=== PATIENT | female | born 1935 | race Caucasian/White ===

== ENCOUNTER → 2016-12-21 | Outpatient (CLI) | payer MEDICARE, BC ==
[~2016-12-21] MED LIST: ALBU1.252 INH; ALPR-240 PO; ASPI-1085 PO; BISA10SU61 RECTALLY; CALC-946 PO; DONE10TA30 PO; FEXO-118 PO; FLUT250D2 ORAL INH; MELO-267 PO; METO-279 PO; MIRT45TA PO; OMEP40CA52 PO; QUET25TA PO; RANI150T7 PO; SERT100T12 PO
[2016-12-21 13:20] LABS: MAGNESIUM 2.3 MG/DL (1.6-2.3)
[2016-12-21 15:27] LABS: THYROID STIM HORMONE-TSH 3.61 MIU/L (0.47-4.68)
--- NOTE | 2016-12-21 20:00 | ECHOF ---
DATE OF PROCEDURE December 21, 2016 This is a two-dimensional echo with spectral Doppler, color-flow and M-mode. It was obtained in a patient with mitral valve regurgitation and pulmonary hypertension. Left atrial dimension is normal. Left ventricular end-diastolic dimension is normal. Left ventricular wall thickness is normal. LV systolic function is normal with ejection fraction of 63%. Right atrium is normal. Right ventricle is normal. Aortic root dimension is normal. Mitral annulus is calcified. Mitral valve leaflets are normal with mild mitral regurgitation. Aortic valve shows fibrocalcific changes with no stenosis or insufficiency. Tricuspid valve shows moderate tricuspid regurgitation with [id number] pulmonary hypertension with estimated pulmonary artery systolic pressure of 43. Pulmonary valve shows mild pulmonary insufficiency. There is no pericardial effusion. IMPRESSION 1. Normal LV systolic function with ejection fraction of about 63%. 2. Mitral annulus calcification with mild mitral regurgitation. 3. Aortic sclerosis. 4. Moderate tricuspid regurgitation with [id number] pulmonary hypertension with estimated pulmonary artery systolic pressure of 43. 5. Mild pulmonary insufficiency. MTDD
== END ==
LOC: IMA 12:15
PROVIDERS: ATTEND Internal Medicine Cardiovascular Disease
DX: I08.3 Combined rheumatic disorders of mitral, aortic and tricuspid valves (principal); I10 Essential (primary) hypertension; I25.10 Atherosclerotic heart disease of native coronary artery without angina pectoris; I27.2 Other secondary pulmonary hypertension; I49.3 Ventricular premature depolarization
CPT/HCPCS: 36415; 83735; 84443; 93306

== ENCOUNTER → 2016-12-26 | Outpatient (CLI) | payer MEDICARE, BC ==
[~2016-12-26] MED LIST changes: +REGADENOSON 0.4mg/5ml INJECTION IV ONE; +SALINE FLUSH 10ml SYRINGE ONE
--- NOTE | 2016-12-28 11:28 | ADENOSINEF ---
DATE OF PROCEDURE December 26, 2016 PROCEDURE 1. Lexiscan Myoview. INDICATION Coronary artery disease. IMPRESSION 1. Baseline EKG shows sinus rhythm with frequent PVCs. 2. She tolerated Lexiscan without difficulty. 3. Hemodynamic response to Lexiscan was appropriate. 4. There were no ischemic EKG changes. 5. There were no new arrhythmias. 6. 12.7 mCi of Myoview was given for rest images and 33.8 mCi for stress images. 7. Nuclear perfusion images revealed normal coronary perfusion with no scar or ischemia. 8. Quantitative ejection fraction is measured at 66%. MTDD
== END ==
LOC: IMA 11:38
PROVIDERS: ATTEND Internal Medicine Cardiovascular Disease
DX: I25.10 Atherosclerotic heart disease of native coronary artery without angina pectoris (principal); I49.3 Ventricular premature depolarization
CPT/HCPCS: 78452; 93017; A9502; J2785

== ENCOUNTER 2017-01-03 08:34 | Observation (INO) | payer MEDICARE, BC ==
[~2017-01-03] VITALS: Ht 157.5 cm; Wt 77.5 kg
[~2017-01-03 08:34] MED LIST changes: -REGADENOSON 0.4mg/5ml INJECTION IV ONE; -SALINE FLUSH 10ml SYRINGE ONE
--- NOTE | 2017-01-03 08:35 | NUR ---
ADMIT AMBULATORY TO ROOM 132 WITH DAUGHTER. PATIENT AND DAUGHTER ORIENTED TO SURROUNDINGS.
[2017-01-03 08:43] VITALS: Ht 157.5 cm; Wt 77.5 kg
[2017-01-03 08:45] VITALS: PULSE 64
[2017-01-03 08:48] VITALS: BP 162/67; PULSE 64; RESP 18; TEMP 97.2; O2SAT 95
[2017-01-03] MEDS ORDERED: METO-277 PO (08:58)
[2017-01-03 09:36] LABS: BASOPHILS # (AUTO) 0.1 T/MM3 (0-0.2); BASOPHILS % (AUTO) 0.5 % (0-2); EOSINOPHILS # (AUTO) 0.9 T/MM3 (0-0.5); EOSINOPHILS % (AUTO) 7.3 % (0-4); HCT - HEMATOCRIT 38.8 % (36-46); HGB - HEMOGLOBIN 12.1 GM/DL (12-16); IMMATURE GRANULOCYTE # (AUTO) 0.03 T/MM3 (0.00-0.03); IMMATURE GRANULOCYTE % (AUTO) 0.2 % (0.0-0.5); LYMPHOCYTES # (AUTO) 3.5 T/MM3 (1-4.8); LYMPHOCYTES % (AUTO) 27.1 % (23-45); MEAN CORPUSCULAR HGB CONC(MCHC 31.2 GM/DL (31-37); MEAN CORPUSCULAR VOLUME 89.8 UM3 (80-100); MEAN PLATELET VOLUME 10.5 UM3 (9.4-12.4); MONOCYTES # (AUTO) 1.2 T/MM3 (0-0.8); MONOCYTES % (AUTO) 9.2 % (0-9.0); NEUTROPHILS #(AUTO)-ABSOLUTE 7.2 T/MM3 (1.8-7.7); NEUTROPHILS % (AUTO) 55.7 % (33-66); RED BLOOD COUNT 4.32 M/MM3 (4.00-5.20); WBC - WHITE BLOOD COUNT 12.9 T/MM3 (4.5-11.0)
[2017-01-03 09:45] LABS: ALBUMIN 3.7 G/DL (3.5-5.0); ALBUMIN/GLOBULIN RATIO 1.2 RATIO (1.1-2.2); ALKALINE PHOSPHATASE 75 U/L (38-126); ALT (SGPT) 22 U/L (9-52); ANION GAP 14 MEQ/L (5-15); AST (SGOT) 25 U/L (14-36); BUN/CREATININE RATIO 25 RATIO (6-26); CALCIUM 9.1 MG/DL (8.4-10.2); CHLORIDE 108 MEQ/L (98-107); CO2 - CARBON DIOXIDE 22 MEQ/L (22-30); CREATININE 1.3 MG/DL (0.7-1.2); GLOMERULAR FILTRATION RATE 40; GLUCOSE 111 MG/DL (65-110); POTASSIUM 4.2 MEQ/L (3.6-5); SODIUM 144 MEQ/L (134-144); TOTAL PROTEIN 6.9 G/DL (6.3-8.2)
--- NOTE | 2017-01-03 10:10 | HPPDOC ---
DARION RICE CONTENT CHECKER 01/03/17 0953: HPI - Adult Date DATE: 01/03/17 TIME: 09:44 General Date of Admission Date of Admission: Jan 03, 2017 at 08:34 Chief Complaint: PVCs History of Present Illness Liza is a 81 year old female who is well known to Dr. Hoang with a history of CAD, nonrheumatic mitral valve insufficiency, HTN and frequent PVCs who is being admitted for antiarrhythmic therapy on Flecainide. Past Medical History Past Medical History Metabolic: hypercholesterolemia, hypertension ENMT: allergies Respiratory: COPD, asthma GI: GERD, IBS, constipation Female: UTI, kidney stones Neurological: headaches Integumentary: other Psychological: anxiety, bipolar, dementia, depression Surgical History General: EGD, appendix, colonoscopy, gallbladder, tonsils Cardiac: cardiac cath Reproductive/: D&C, other Current Medications Home Meds Active Scripts Flecainide Acetate (Flecainide Acetate) 50 Mg Tablet, 50 MG PO Q12HR for 30 Days , #60 TAB 11 Refills Prov:DARION RICE CONTENT CHECKER 01/04/17 Reported Medications Metoprolol Succinate (Metoprolol Succinate) 50 Mg Tab.er.24h, 50 MG PO DAILY, TAB 01/03/17 Donepezil HCl (Donepezil HCl) 10 Mg Tablet, 10 MG PO DAILY 11/07/16 Meloxicam (Meloxicam) 15 Mg Tablet, 15 MG PO DAILY 09/29/16 Fluticasone Propionate (Flovent Diskus) 250 Mcg Blst.w.dev, 250 PUFF ORAL INH BID 09/29/16 Cholecalciferol (Vitamin D3) (Vitamin D3) 5,000 Unit Tablet, 5000 UNIT PO DAILY 01/04/16 Ranitidine HCl (Ranitidine HCl) 150 Mg Tablet, 150 MG PO HS 01/04/16 Omeprazole (Omeprazole) 40 Mg Capsule.dr, 40 MG PO ACB 01/04/16 Sertraline (Sertraline) 100 Mg Tablet, 150 MG PO DAILY 01/04/16 Quetiapine Fumarate (Seroquel) 25 Mg Tablet, 75 MG PO HS 12/01/14 Albuterol Sulfate (Albuterol Sulfate) 1.25 Mg/3 Ml Vial.neb, 1 VIAL INH PRN 06/20/14 Mirtazapine (Remeron) 45 Mg Tablet, 45 MG PO HS 05/28/10 Alprazolam (Alprazolam) 0.25 Mg Tablet, 0.25 MG PO BID Y for ANXIETY 05/28/10 Allergies: Coded Allergies: Sulfa (Sulfonamide Antibiotics) (Verified Allergy, Unknown, SWOLLEN TONGUE , 01/03/17) Family History FOUND: CAD, MD, asthma, cancer, diabetes, hypertension (father) Vaccines 2016 UNSURE Social History Smoking Status: Never smoker Substance Use Type: does not use Alcohol Intake: none Current Occupational Status: retired Advance Directives: No DPOA for Healthcare Only Review of Systems Constitutional: REPORTS: fatigue, weakness, DENIES: chills, dizziness, fever Eyes Vision: DENIES: double vision ENMT Balance: DENIES: vertigo Sinuses: NOT FOUND: rhinorrhea Mouth/Throat: DENIES: sore throat Cardiovascular DENIES: chest pain, dyspnea on exertion, murmur, orthopnea, paroxysmal nocturnal dysp Rhythm/Rate: irregular beat, DENIES: palpitations, tachycardia Vascular: DENIES: pedal edema Pulmonary Respiratory: DENIES: cough, sputum GI Upper Abdomen: DENIES: nausea, vomiting Lower Abdomen: DENIES: diarrhea General: DENIES: dysuria Musculoskeletal General: weakness Neurological General: weakness, DENIES: headache, numbness, seizures, syncope All Other Systems All Other Systems: Reviewed (remainder of 10-point ROS Neg.) Physical Exam General General Nourishment: well nourished, well developed, apparent age Vital Signs Vital Signs Date Time Temp Pulse Resp B/P Pulse Ox O2 Delivery O2 Flow Rate FiO2 01/03/17 08:48 97.2 64 18 162/67 95 Room Air Height (Feet): 5 Height (Inches): 2.00 Telemetry Rhythm: Sinus Rhythm Telemetry Ectopy: PVC ENMT Brief: FOUND: mucosa moist Neck Brief: NOT FOUND: JVD, carotid bruits Respiratory Brief: FOUND: clear all castle, equal bilaterally, NOT FOUND: rales , wheezes Cardiovascular (brief) Cardiac Brief: FOUND: regular rate, regular rhythm, NOT FOUND: murmur, pedal edema Abdomen (brief) Abdominal Brief: FOUND: BS normo active x4, soft, NOT FOUND: tender Integumentary (brief) Integumentary Brief: FOUND: dry, pink, warm Neurologic RN Documented GCS Eye Opening: Verbal: Motor: Total: Psychiatric (brief) FOUND: alert, oriented Laboratory Laboratory Tests Test 01/03/17 09:20 White Blood Count 12.9T/MM3 Red Blood Count 4.32M/MM3 Hemoglobin 12.1GM/DL Hematocrit 38.8% Mean Corpuscular Volume 89.8UM3 Mean Corpuscular Hemoglobin 28.0UUG Mean Corpuscular Hemoglobin Concent 31.2GM/DL RDW Standard Deviation 54.6FL Platelet Count 214T/MM3 Mean Platelet Volume 10.5UM3 Immature Granulocyte % (Auto) 0.2% Neutrophils (%) (Auto) 55.7% Lymphocytes (%) (Auto) 27.1% Monocytes (%) (Auto) 9.2% Eosinophils (%) (Auto) 7.3% Basophils (%) (Auto) 0.5% Absolute Immature Granulocyte (auto 0.03T/MM3 Absolute Neutrophils (auto) 7.2T/MM3 Absolute Lymphocytes (auto) 3.5T/MM3 Absolute Monocytes (auto) 1.2T/MM3 Absolute Eosinophils (auto) 0.9T/MM3 Absolute Basophils (auto) 0.1T/MM3 Turbidity < 20 Sodium Level 144MEQ/L Potassium Level 4.2MEQ/L Chloride Level 108MEQ/L Carbon Dioxide Level 22MEQ/L Anion Gap 14MEQ/L Blood Urea Nitrogen 32.0MG/DL Creatinine 1.3MG/DL Glomerular Filtration Rate Calc 40 BUN/Creatinine Ratio 25RATIO Glucose Level 111MG/DL Calculated Osmolality 285MOSM/KG Calcium Level 9.1MG/DL Magnesium Level 2.0MG/DL Total Bilirubin 0.50MG/DL Icterus Index < 2 Aspartate Amino Transf (AST/SGOT) 25U/L Alanine Aminotransferase (ALT/SGPT) 22U/L Alkaline Phosphatase 75U/L Total Protein 6.9G/DL Albumin 3.7G/DL Globulin 3.2G/DL Albumin/Globulin Ratio 1.2RATIO Chemistry Specimen Hemolysis < 15 Laboratory Tests Test 01/03/17 09:20 White Blood Count 12.9T/MM3 Red Blood Count 4.32M/MM3 Hemoglobin 12.1GM/DL Hematocrit 38.8% Mean Corpuscular Volume 89.8UM3 Mean Corpuscular Hemoglobin 28.0UUG Mean Corpuscular Hemoglobin Concent 31.2GM/DL RDW Standard Deviation 54.6FL Platelet Count 214T/MM3 Mean Platelet Volume 10.5UM3 Immature Granulocyte % (Auto) 0.2% Neutrophils (%) (Auto) 55.7% Lymphocytes (%) (Auto) 27.1% Monocytes (%) (Auto) 9.2% Eosinophils (%) (Auto) 7.3% Basophils (%) (Auto) 0.5% Absolute Immature Granulocyte (auto 0.03T/MM3 Absolute Neutrophils (auto) 7.2T/MM3 Absolute Lymphocytes (auto) 3.5T/MM3 Absolute Monocytes (auto) 1.2T/MM3 Absolute Eosinophils (auto) 0.9T/MM3 Absolute Basophils (auto) 0.1T/MM3 EKG SR with occasional PVCs Assessment & Plan Problems: (1) Ventricular premature depolarization Status: Chronic Assessment & Plan: Start Flecainide 50mg BID. Monitor telemetry and repeat EKG in the morning (2) Atherosclerotic heart disease of [place] coronary artery without angina pectoris Status: Chronic Qualifiers: [place] vs. transplanted heart: [place] heart Qualified Codes: I25.10 - Atherosclerotic heart disease of [place] coronary artery without angina pectoris Assessment & Plan: continue current therapy, routine monitoring (3) Nonrheumatic mitral valve insufficiency Status: Chronic Assessment & Plan: continue current therapy, routine monitoring (4) Essential (primary) hypertension Status: Chronic Assessment & Plan: well controlled on current therapy. continue current therapy , routine monitoring Plan/Intensity of Service Start Flecainide 50mg BID. Monitor telemetry and repeat EKG in the morning. Code Status Full Code Hospital Course Summary Disclaimer The hospital course summary below is not to be considered part of the above Progress Note. MATHIEU HOANG MD 01/06/17 5537: Past Medical History Current Medications Home Meds Active Scripts Flecainide Acetate (Flecainide Acetate) 50 Mg Tablet, 50 MG PO Q12HR for 30 Days , #60 TAB 11 Refills Prov:DARION RICE CONTENT CHECKER 01/04/17 Reported Medications Metoprolol Succinate (Metoprolol Succinate) 50 Mg Tab.er.24h, 50 MG PO DAILY, TAB 01/03/17 Donepezil HCl (Donepezil HCl) 10 Mg Tablet, 10 MG PO DAILY 11/07/16 Meloxicam (Meloxicam) 15 Mg Tablet, 15 MG PO DAILY 09/29/16 Fluticasone Propionate (Flovent Diskus) 250 Mcg Blst.w.dev, 250 PUFF ORAL INH BID 09/29/16 Cholecalciferol (Vitamin D3) (Vitamin D3) 5,000 Unit Tablet, 5000 UNIT PO DAILY 01/04/16 Ranitidine HCl (Ranitidine HCl) 150 Mg Tablet, 150 MG PO HS 01/04/16 Omeprazole (Omeprazole) 40 Mg Capsule.dr, 40 MG PO ACB 01/04/16 Sertraline (Sertraline) 100 Mg Tablet, 150 MG PO DAILY 01/04/16 Quetiapine Fumarate (Seroquel) 25 Mg Tablet, 75 MG PO HS 12/01/14 Albuterol Sulfate (Albuterol Sulfate) 1.25 Mg/3 Ml Vial.neb, 1 VIAL INH PRN 06/20/14 Mirtazapine (Remeron) 45 Mg Tablet, 45 MG PO HS 05/28/10 Alprazolam (Alprazolam) 0.25 Mg Tablet, 0.25 MG PO BID Y for ANXIETY 05/28/10 Allergies: Coded Allergies: Sulfa (Sulfonamide Antibiotics) (Verified Allergy, Unknown, SWOLLEN TONGUE , 01/03/17) Assessment & Plan Plan/Intensity of Service After examining the patient I agree with the above assessment. I am involved in the formulation of the patient's plan of care. DARION RICE APRN Jan 03, 2017 09:53 MATHIEU HOANG MD Jan 06, 2017 13:37
[2017-01-03 10:16] LABS: THYROID STIM HORMONE-TSH 3.81 MIU/L (0.47-4.68)
[2017-01-03] MEDS: FLECAINIDE 50 MG TABLET PO SCH ×2 (10:17→21:21)
--- NOTE | 2017-01-03 11:18 | NUR ---
CM CM IN TO VISIT PATIENT, SHE IS A&O. DAUGHTER IS AT THE BEDSIDE. PATIENT PLANS TO DISCHARGE HOME, DENIES ANY DISCHARGE NEEDS. CM CONTACT INFORMATION PROVIDED. JUDI DEL ANGEL. Addendum: 01/03/17 at 1119 by ANNIKA ALEX RN Amended: Links added.
[2017-01-03 11:42] VITALS: BP 126/65; PULSE 68; RESP 20; TEMP 96.3; O2SAT 97
[2017-01-03 16:08] VITALS: BP 140/67; PULSE 67; RESP 18; TEMP 96.3
[2017-01-03] MEDS ORDERED: ALPRAZOLAM 0.25 MG TABLET PO PRN (18:30)
[2017-01-03 20:00] VITALS: BP 141/69; PULSE 79; RESP 16; TEMP 96.7; O2SAT 92
--- NOTE | 2017-01-03 20:00 | NUR ---
STATUS PT A/O X3 BUT FORGETFUL. HX OF ALZHEIMERS. PT ON RA, DENIES SOA. DENIES PAIN OR NAUSEA. TOLERATING CARDIAC DIET WELL. TELE READING SINUS RHYTHM. PT DENIES CHEST PAIN. NO COMPLAINTS OF DIZZINESS. ADEQUATE OUTPUT. PT RESTING IN BED WITH ALARM. CALL LIGHT WITHIN REACH. FREQUENT ROUNDING. WILL CONTINUE TO MONITOR.
--- NOTE | 2017-01-03 20:55 | NUR ---
meds granddaughter in room, refuses routine evening meds for pt. from our pharmacy. Granddaughter will give home routine meds to pt. this evening. We will send home meds to pharmacy to review and approve for a.m. doses.
--- NOTE | 2017-01-03 21:00 | NUR ---
activity assisted to BR, denies dizziness as up. Denies pain or dyspnea. Reminded to call for assist as up. Pt. asks again "how do I call?". Reminded again how to use the call button
[2017-01-03] MEDS ORDERED: MIRTAZAPINE 45 MG TABLET PO SCH (22:00)
[2017-01-03] MEDS ORDERED: QUETIAPINE 25 MG TABLET PO SCH (22:00)
[2017-01-03] MEDS ORDERED: RANITIDINE 150 MG PO SCH (22:00)
[2017-01-04 00:11] VITALS: BP 151/72; PULSE 67; RESP 16; TEMP 96; O2SAT 95
--- NOTE | 2017-01-04 05:36 | NUR ---
rest sleeps off and on tonoc, resp. unlabored. Assisted to BR several times, denies pain. Tele SR w/ frequent PVC
[2017-01-04] MEDS ORDERED: OMEPRAZOLE 20 MG CAPSULE PO SCH (06:30)
[2017-01-04 06:57] LABS: ANION GAP 14 MEQ/L (5-15); BUN/CREATININE RATIO 27 RATIO (6-26); CALCIUM 9.2 MG/DL (8.4-10.2); CHLORIDE 108 MEQ/L (98-107); CO2 - CARBON DIOXIDE 24 MEQ/L (22-30); CREATININE 1.1 MG/DL (0.7-1.2); GLOMERULAR FILTRATION RATE 48; GLUCOSE 94 MG/DL (65-110); MAGNESIUM 1.9 MG/DL (1.6-2.3); POTASSIUM 4.2 MEQ/L (3.6-5); SODIUM 146 MEQ/L (134-144)
[2017-01-04 08:26] VITALS: BP 144/69; PULSE 70; RESP 16; TEMP 96.5; O2SAT 94
[2017-01-04] MEDS ORDERED: MELOXICAM 15 MG TABLET PO SCH (09:00)
[2017-01-04] MEDS ORDERED: --POM--SERTRALINE 100 MG TABLET PO SCH (09:00)
[2017-01-04] MEDS ORDERED: DONEPEZIL 10 MG PO SCH (09:00)
[2017-01-04] MEDS ORDERED: SERTRALINE 50 MG TABLET PO SCH (09:00)
[2017-01-04] MEDS ORDERED: METOPROLOL XL 50 MG TABLET PO SCH (09:00)
[2017-01-04] MEDS ORDERED: METOPROLOL 100 MG PO SCH (09:00)
[2017-01-04] MEDS: FLECAINIDE 50 MG TABLET PO SCH (09:11)
[2017-01-04] MEDS ORDERED: FLEC50TA2 PO (12:06)
[2017-01-04 13:22] VITALS: BP 146/71; PULSE 71; RESP 20; TEMP 96.5; O2SAT 94
--- NOTE | 2017-01-04 13:25 | NUR ---
Discharge Patient discharge orders received. Instructions reviewed with patient and daughter. Instructions for new medication of flecanide reviewed. VSS. Heart rhythn normal sinus with occasional PVC's. Script called into pharmacy per [employer]. Escorted to car by wheelchair and Henna Villarreal cna
--- NOTE | 2017-01-04 14:00 | NUR ---
CM CM IN TO VISIT WITH PT. SHE IS ALERT AND ORIENTED. HER DAUGHTER IS PRESENT. PT PLANS TO DC HOME. SHE DENIES DC NEEDS. SHE IS GIVEN UPDATED CM CONTACT INFORMATION. Addendum: 01/04/17 at 1550 by STUART GARG RN Amended: Links added.
--- NOTE | 2017-01-05 11:21 | NUR ---
ATTEMPTED POST HOSPITAL FOLLOW UP PHONE CALL #1, NO ANSWER, LEFT VOICE MESSAGE TO RETURN CALL TO CM.
== END 2017-01-04 13:25 | disposition home or self-care (01) ==
LOC: SRG 08:34
PROVIDERS: ADMIT Internal Medicine Cardiovascular Disease; ATTEND Internal Medicine Cardiovascular Disease
DX: I49.3 Ventricular premature depolarization (principal); I25.10 Atherosclerotic heart disease of native coronary artery without angina pectoris; I34.0 Nonrheumatic mitral (valve) insufficiency; I10 Essential (primary) hypertension; Z79.899 Other long term (current) drug therapy; E78.00 Pure hypercholesterolemia, unspecified; J44.9 Chronic obstructive pulmonary disease, unspecified; J45.909 Unspecified asthma, uncomplicated; K21.9 Gastro-esophageal reflux disease without esophagitis; K58.1 Irritable bowel syndrome with constipation; Z87.442 Personal history of urinary calculi; Z87.440 Personal history of urinary (tract) infections; F41.0 Panic disorder [episodic paroxysmal anxiety]; F31.9 Bipolar disorder, unspecified; F03.90 Unspecified dementia, unspecified severity, without behavioral disturbance, psychotic disturbance, mood disturbance, and anxiety; Z98.61 Coronary angioplasty status; Z79.82 Long term (current) use of aspirin; Z79.1 Long term (current) use of non-steroidal anti-inflammatories (NSAID); Z82.49 Family history of ischemic heart disease and other diseases of the circulatory system
CPT/HCPCS: 36415; 80048; 80053; 83735; 84439; 84443; 85025; 93005; A9270; G0378; 99218

== ENCOUNTER 2017-11-01 15:18 | Observation (INO) ==
--- OUTSIDE RECORDS SUMMARY | 2017-11-01 15:37 | External Medical Summary | Continuity of Care Document ---
:1935 Author Organization [facility] Allergies Active Description Code Type Severity Reaction Onset Reported/ Identified Relationship Clinical to Patient Status Yes Sulfa 491 3 N/A N/A (Sulfonamide Antibiotics) Yes No Known 76197 3 N/A N/A 04/17/1215 Drug 0 Allergies Medications There is no data. Problems There is no data. Procedures There is no data. Results There is no data. Encounters ACCT No. Visit Discharge Status Pt. Type Provider Facility Loc./Unit Complaint Date/Time [id number] 10/04/2016 10/04/2016 [facility] Outpatient Judith, 13:40:00 23:59:59 Natalia Kwok
[2017-11-01] MEDS ORDERED: SALINE FLUSH 10ml SYRINGE IVF PRN (15:38)
--- NOTE | 2017-11-01 15:52 | Emergency Department Report ---
Fall HPI - General Chief Complaint: Fall Stated Complaint: Fall Time Seen by Provider: 11/01/17 15:33 - History of Present Illness HPI Narrative: 10-year-old female brought in by EMS status post fall. This is an unwitnessed fall. Patient has fallen 5 times in 5 days. She has "goose eggs" from other falls during the last few days. Seen today by her primary care provider for follow-up on the falls. On being brought in by EMS patient is diaphoretic and sedate having had fentanyl 100 g. Patient brought in in c-collar on backboard. - Related Data Home Medications Medication Instructions Recorded Confirmed Cholecalciferol (Vitamin D3) 5,000 unit PO DAILY 04/14/17 11/01/17 [Vitamin D3] Metoprolol Succinate 50 mg PO DAILY 04/14/17 11/01/17 Multivitamin [One Daily 1 each PO DAILY 04/14/17 11/01/17 Multivitamin] Acetaminophen 1 - 2 tab PO Q5H PRN 10/28/17 11/01/17 Albuterol/Ipratropium [Duoneb] 1 unit AEROSOL TID PRN 10/28/17 11/01/17 BuPROPion SR [Wellbutrin Sr] 200 mg PO DAILY 10/28/17 11/01/17 Donepezil [Aricept] 10 mg PO HS 10/28/17 11/01/17 Flecainide [Tambocor] 50 mg PO BID 10/28/17 11/01/17 Nystatin 1 each TOP BID 10/28/17 11/01/17 Sertraline [Zoloft] 200 mg PO DAILY 10/28/17 11/01/17 Allergies Allergy/AdvReac Type Severity Reaction Status Date / Time Sulfa (Sulfonamide Allergy Unknown SWOLLEN Verified 11/01/17 15:43 Antibiotics) TONGUE Review of Systems All systems: reviewed and negative except as stated PFSH Patient Stated Medical History Alzheimer's Disease Yes Dementia Yes Hypertension Yes Other Cardiology Yes: Pulmonary Arterial Hypertension Asthma Yes Pneumonia Yes Gastroesophageal Reflux Yes Disease Other GI Yes: IBS Hx Incontinence Yes Hx Kidney Stones Yes Hx Urinary Tract Infection Yes Osteoarthritis Yes: Left Knee Depression Yes - Social History Smoking status: Never smoker Substance use type: does not use Physical Exam - Limitations Limitations: no limitations - General General appearance: lethargic - Normal Exams: Chest/Respirations:: Clear all castle, with good airflow, and symmetry bilaterally Cardiovascular:: Regular rate and rhythm, without murmur or gallop, Pulses 2+ all extremities, capillary refill, <2 seconds all extremities Abdomen:: Bowel sounds positive, soft, non-tender, non-distended, no hepatosplenomegaly, masses or bruits noted - Head Head exam: other (right posterior occiput has palpable hematoma.) Course Vital Signs Temperature 98.5 F 11/01/17 15:18 Pulse Rate 66 11/01/17 15:18 Respiratory Rate 20 11/01/17 15:18 Blood Pressure 184/86 H 11/01/17 15:18 Pulse Oximetry 93 11/01/17 15:18 Temperature 98.5 F 11/01/17 15:18 Pulse Rate 67 11/01/17 17:15 Respiratory Rate 19 11/01/17 16:45 Blood Pressure 158/70 H 11/01/17 17:00 Pulse Oximetry 91 11/01/17 17:15 Fall - [facility] Narrative Medical decision making narrative: On arrival, patient was rolled from backboard and spine was cleared. She was laid back on to a slider board. C-collar left in place until CT head and CT cervical spine return red. Labs reviewed and CMP negative, CBC shows slightly elevated white count, UA is negative. CT cervical spine and CT brain are negative as is x-ray of pelvis and bilateral hips. This is a patient whom has had 5 falls in 5 days. She is not safe in her present circumstance due to repeated falls. I spoke with our hospitalist who was willing to put the patient in on observation status and sort out placement. - Differential Diagnosis Likely: syncope, compression fracture, concussion with loss of consciousness, concussion without loss of consciousness - Medical Records Attestation: I reviewed the patient's medical records. - Lab Data Attestation: I reviewed the patient's lab results. Result diagrams: 11/01/17 15:27 11/01/17 15:27 Lab Results 11/01/17 11/01/17 11/01/17 Range/Units 15:27 15: 17:10 WBC 12.4 H (4.5-11.0) T/MM3 RBC 4.41 (4.00-5.20) M/MM3 Hgb 14.0 (12-16) GM/DL Hct 43.6 (36-46) % MCV 98.9 (80-100) UM3 MCH 31.7 (26-34) UUG MCHC 32.1 (31-37) GM/DL RDW Std Deviation 50.3 H (36.9-50.2) FL Plt Count 231 (130-400) T/MM3 MPV 10.7 (9.4-12.4) UM3 Immature Gran % (Auto) 0.2 (0.0-0.5) % Neut % (Auto) 62.0 (33-66) % Lymph % (Auto) 25.6 (23-45) % [place] % (Auto) 8.8 (0-9.0) % Eos % (Auto) 3.1 (0-4) % Baso % (Auto) 0.3 (0-2) % Neut # (Auto) 7.7 (1.8-7.7) T/MM3 Lymph # (Auto) 3.2 (1-4.8) T/MM3 [place] # (Auto) 1.1 H (0-0.8) T/MM3 Eos # (Auto) 0.4 (0-0.5) T/MM3 Baso # (Auto) 0.0 (0-0.2) T/MM3 Abs Immat Gran (auto) 0.03 (0.00-0.03) T/MM3 Turbidity < 20 (0-20) Sodium 145 H (134-144) MEQ/L Potassium 3.9 (3.6-5) MEQ/L Chloride 106 (98-107) MEQ/L Carbon Dioxide 26 (22-30) MEQ/L Anion Gap 13 (5-15) MEQ/L BUN 19.0 H (7-17) MG/DL Creatinine 1.2 (0.7-1.2) MG/DL GFR Calculation 43 BUN/Creatinine Ratio 16 (6-26) RATIO Glucose 107 (65-110) MG/DL Calculated Osmolality 281 H (261-280) MOSM/KG Calcium 9.6 (8.4-10.2) MG/DL Total Bilirubin 0.40 (0.20-1.30) MG/DL Icterus Index < 2 (0-7) AST 34 (14-36) U/L ALT 27 (9-52) U/L Alkaline Phosphatase 82 (38-126) U/L Troponin I < 0.012 (0-0.12) ng/ml Total Protein 7.3 (6.3-8.2) G/DL Albumin 4.1 (3.5-5.0) G/DL Globulin 3.2 (2.4-3.6) G/DL Albumin/Globulin Ratio 1.3 (1.1-2.2) RATIO Plasma Lactate 1.6 (0.6-2.2) MMOL/L Specimen Hemolysis 18 (0-25) Ur Collection Type Urine, cath euceda Urine Color Yellow (YELLOW) Urine Clarity Clear Urine pH 7.0 (5.0-8.0) Ur Specific [place] 1.025 (1.015-1.025) Urine Protein Negative (NEGATIVE) Urine Glucose (UA) Negative (NEGATIVE) Urine Ketones Negative (NEGATIVE) Urine Occult Blood Negative (NEGATIVE) Urine Nitrate Negative (NEGATIVE) Urine Bilirubin Negative (NEGATIVE) Urine Urobilinogen 0.2 (NORMAL) EU/DL Ur Leukocyte Esterase Negative (NEGATIVE) Urinalysis Comment Microscopic not ind. - Radiology Data Attestation: I reviewed the patient's radiology results. Disposition Clinical Impression: Weakness, Fall, Concussion Disposition: 02 To [facility] Condition: Stable Prescriptions: No Action Multivitamin [One Daily Multivitamin] 1 each PO DAILY Metoprolol Succinate 50 mg PO DAILY BuPROPion SR [Wellbutrin Sr] 200 mg PO DAILY Acetaminophen 1 - 2 tab PO Q5H PRN PRN Reason: Pain Donepezil [Aricept] 10 mg PO HS Sertraline [Zoloft] 200 mg PO DAILY Nystatin 1 each TOP BID Cholecalciferol (Vitamin D3) [Vitamin D3] 5,000 unit PO DAILY Albuterol/Ipratropium [Duoneb] 1 unit AEROSOL TID PRN PRN Reason: Shortness Of Air Flecainide [Tambocor] 50 mg PO BID Referrals: James Arreaga MD [Family Provider] - Time of Disposition: 17:39 - Seen By: physician
--- NOTE | 2017-11-01 16:36 | CT Scan Report ---
Indication: Repeated falls PROCEDURE: CT cervical spine wo con: Encounter: Initial Comparison: October 28, 2017 Technique: Axial CT images through the cervical spine were performed without contrast. Coronal and sagittal reformatted images were also obtained. Automated Exposure Control and Iterative Reconstruction dose reducing techniques were utilized. FINDINGS: The alignment of the cervical spine is stable. Multilevel degenerative changes are present. There is no evidence of acute fracture or subluxation of the cervical spine. The atlantoaxial articulation, dens, and upper cervical spine demonstrate no subluxation. The paraspinal soft tissues and spinal canal appear unremarkable. IMPRESSION: No acute traumatic abnormality of the cervical spine. .
--- NOTE | 2017-11-01 16:38 | CT Scan Report ---
Indication: fall PROCEDURE: CT head/brain wo con: Encounter: Initial Comparison: October 28, 2017 Technique: Axial CT images through the head were performed without contrast. Iterative Reconstruction dose reducing technique was utilized. FINDINGS: Mild to moderate generalized atrophy. The ventricles are stable. There is no evidence of acute intracranial hemorrhage, midline displacement, or mass effect. There are scattered areas of low attenuation in the white matter which most likely represent changes of chronic microvascular ischemia. The CT attenuation of the brain parenchyma is otherwise normal within the cerebellum, brain stem, and cerebral hemispheres. The tympanic cavities and mastoid air cells are free of appreciable disease. There are no definite fractures of the skull base, calvarium, or visualized portion of the midface. Chronic left maxillary sinusitis. Left parietal scalp hematoma. IMPRESSION: No CT evidence of acute traumatic intracranial injury. .
--- NOTE | 2017-11-01 16:40 | XRay Report ---
Indication: fall PROCEDURE: XR chest 1V: Encounter: Initial Comparison: April 14, 2017 Findings: Stable appearance of the chest with an elevated right hemidiaphragm and prominent hiatal hernia. No pneumonia, pleural effusion or pneumothorax. Heart size and mediastinal contours are stable. Pulmonary vascularity appears normal. Impression: Stable chest without acute cardiopulmonary disease. .
--- NOTE | 2017-11-01 16:50 | XRay Report ---
Indication: fall with right hip pain PROCEDURE: XR pelvis w/ 2 view BI hip: Encounter: Initial Comparison: October 28, 2017 Findings: There is no acute fracture, dislocation or malalignment identified. Mild osteoarthritis in the hips. Degenerative change in the pubic symphysis. Impression: No acute osseous abnormality. .
[2017-11-01 18:29] VITALS: BMI 30.4
--- NOTE | 2017-11-01 18:54 | History & Physical Report ---
History of Present Illness Date: 11/01/17 Chief complaint: multiple falls HPI: Patient is an 82-year-old female who is pleasantly confused with a long- standing history of dementia. She currently resides at [facility] under the care of Dr. Arreaga. Unfortunately, over the last 5 days she has suffered 5 separate falls requiring 3 emergency room visits in the past 4 days. She has "goose eggs" and multiple bruises all over her head, arms, knees, legs, however , has not been found have any acute fractures, intracranial trauma or bleeding. She was seen in the emergency room at [facility] on 10/28 was evaluated and discharged. Then patient was seen on Monday 10/30 at via [facility] ER and was evaluated and discharged. Yesterday she fell again, however, was not transported for evaluation. Then today she fell again hitting her head, she was transported to the emergency room for acute evaluation. She was seen by Dr. Arreaga's GREEN END DEPARTMENT SUPERVISOR- Lacy this morning prior to the fall. Today during acute evaluation in the emergency room . Laboratory studies are reviewed. CT scan of the head, C-spine were obtained. Both were negative. X-ray of chest, hip and pelvis were also obtained. All found to be negative for acute processes. Given numerous falls. The hospitalist services were contacted and accepted patient for outpatient observation admission for further evaluation and treatment. Is expected that her stay will be less than 2 overnights She is seen upon arrival to medical unit. She is alert, however, pleasantly confused and looks to her daughter to answer all questions. Patient's daughter does confirm patient is a full code. Review of Systems ROS unobtainable: due to mental status Review of systems: Unable to get an accurate review of systems on examination. Given patient's dementia. When asking through review of system patient looks to her daughter for answers. She denies having any pain and is able to move all extremities equally without deficit or grimacing. Past Medical History Patient Stated Medical History Dementia Hypertension. Mitral valve insufficiency Coronary artery disease GERD Asthma IBS Depression/anxiety Osteoarthritis Chronic urinary incontinence History of renal stones Surgical History: Tonsillectomy. Appendectomy. Cholecystectomy Family History Updates: Reported. Family history is positive for breast cancer, hypertension and dementia - Social History Smoking status: Never smoker Substance use type: does not use Alcohol intake frequency: does not drink Housing: half-way ([facility]) Current occupational status: retired Current residence: [facility] Social history: Primary care provider-Dr. Arreaga Bi Consultant-Dr. Hoang Patient resides at [facility] in total half-way care Medications Home Medications Medication Instructions Recorded Confirmed Type Cholecalciferol (Vitamin D3) 5,000 unit PO DAILY 04/14/17 11/01/17 History [Vitamin D3] Metoprolol Succinate 50 mg PO DAILY 04/14/17 11/01/17 History Multivitamin [One Daily 1 each PO DAILY 04/14/17 11/01/17 History Multivitamin] Acetaminophen 1 - 2 tab PO Q5H PRN 10/28/17 11/01/17 History Albuterol/Ipratropium [Duoneb] 1 unit AEROSOL TID PRN 10/28/17 11/01/17 History BuPROPion SR [Wellbutrin Sr] 200 mg PO DAILY 10/28/17 11/01/17 History Donepezil [Aricept] 10 mg PO HS 10/28/17 11/01/17 History Flecainide [Tambocor] 50 mg PO BID 10/28/17 11/01/17 History Nystatin 1 each TOP BID 10/28/17 11/01/17 History Sertraline [Zoloft] 200 mg PO DAILY 10/28/17 11/01/17 History Allergies Allergy/AdvReac Type Severity Reaction Status Date / Time Sulfa (Sulfonamide Allergy Unknown SWOLLEN Verified 11/01/17 15:43 Antibiotics) TONGUE Exam Vital Signs: Temperature 96.3 F L 11/01/17 18:13 Pulse Rate 67 11/01/17 18:13 Respiratory Rate 18 11/01/17 18:13 Blood Pressure 156/79 H 11/01/17 18:13 Pulse Oximetry 94 11/01/17 18:13 Height/Weight/BMI: Height 1.6 m Weight 78 kg Body Mass Index 30.4 - Constitutional Present: no acute distress, well nourished, well developed - Routine HEENT Exam Eye: Present: EOMI ENT: Present: mucous membranes moist, dentition normal - Routine Neck Exam Present: supple, full ROM - Routine Respiratory Exam Present: CTA bilaterally. Absent: wheezes - Routine Cardiovascular Exam Present: RRR, S1, S2. Absent: murmur - Routine Abdominal Exam Present: soft, normoactive bowel sounds, non distended. Absent: tenderness - Routine Extremities Exam Present: no edema Comments: Multiple areas of ecchymosis to bilateral arms, for head, knees, hands - Routine Back/Spine/Pelvis Exam Back/Spine: Present: full ROM - Routine Skin Exam Present: intact, dry, warm - Routine Neurological Exam Present: alert, CN II-XII intact, altered mental status (confused, chronic dementia), moving all extremities, vision grossly intact, hearing grossly intact , normal speech. Absent: motor deficit - Routine Psychiatric Exam Present: cooperative Results - Labs CBC & Chem 7: 11/01/17 15:27 11/01/17 15:27 Assessment and Plan (1) Multiple falls Current visit: Yes Status: Acute Assessment and Plan: Impression Multiple falls- 5 falls in the past 5 days Multiple minor head injuries Hypernatremia-present on admission Dementia Mitral valve insufficiency Asthma Hypertension GERD Depression/anxiety Plan Admit patient to outpatient observation under the care of Dr. Aguilera for multiple falls with head injury We will check orthostatic vital signs twice a day as patient may be becoming orthostatic with position changes, which is attributed to her multiple falls. We could likely treat only standing blood pressures. Mild hyper nature me at present on admission with a sodium of 145. Will initiate Normal saline at 100 ML per hour for gentle hydration. Monitor patient on cardiac telemetry to evaluate for dysrhythmias Consult placed for PT and OT to evaluate patient tomorrow morning. Did discuss with patient's daughter, ANN Tena, regarding concern for multiple falls. She feels that patient may be forgetting to call for help or becoming confused and getting out of bed independently. She does indicate that changes were made to patient's bed and it was lowered closer to the ground today. SCDs to bilateral lower extremity for DVT prophylaxis Will utilize scheduled Tylenol for pain control given multiple contusions and ecchymosis At this time will review and continue home medications Will discuss further orders and plan of care with attending, Dr. Aguilera. At time of discharge medical care will return to primary care provider, Dr. Arreaga 11/01/2017-8:15 PM-I reviewed this chart, the patient history, and the GREEN END DEPARTMENT SUPERVISOR's/PA 's documented findings as above. We discussed and formulated the assessment and plan as above with the additions below.-Dr. Aguilera The patient was seen this evening accompanied by her daughter. The patient is very pleasant but has significant dementia. The patient states that she "feels better". She denies any pain. She denies any complaints. She has had multiple falls over the past 5 days at the half-way. Her daughter states she has not seemed agitated to her. The patient has had some medication changes recently with Wellbutrin increased from 150 mg daily to 200 mg daily on 10/25/2017. Also Risperdal was discontinued on 10/23/2017. The patient's daughter states that her mom has had a fall in blood pressure when she stands up. On exam the patient is alert and in no acute distress. HEENT reveals sclerae to be anicteric and pupils are equal. Extraocular movements are intact. Oropharynx is moist. Neck is supple with good range of motion. Chest is clear to auscultation. Cardiovascular reveals a regular rate and rhythm. Abdomen is soft and nontender. Extremities are free of edema. On neurologic exam she has no obvious focal deficits. Motor strength is equal in upper and lower extremities. She has no facial asymmetry. Labs reviewed and essentially normal. She does have a white count of 12.4, but her daughter states she has a chronic elevated white count and sees a ring barker operator oncologist. Sodium is 145. Troponin and lactate are normal. Impression Recent onset of frequent falls of undetermined etiology. No increased agitation or anxiety noted by the patient's daughter Reported Orthostatic hypotension-(I did review orthostatics that are listed in the patient's marker and I do not see much in the way of orthostatic blood pressure drop or increased heart rate with standing) Dementia Recent medication changes with increase in Wellbutrin and discontinuation of Risperdal. It's uncertain if this is contributing to her recent falls Asthma-stable Hypertension Mild hypernatremia Chronic elevated white count Plan Check orthostatics. Will give 1 L of fluids. Repeat labs tomorrow. Bed alarm. Up with assist only. If not orthostatic, and another cause for the patient's falls is not seen, could consider psychiatry consult for calling her psychiatrist to evaluate medications to see if the recent med changes may be contributing to her falls. The patient does see a psychiatrist at [facility] Discussed the importance of that alarm with the patient's nurse - Physician Narrative Physician: Jo-Ann Aguilera MD Narrative: Date: 11/01/17 Time: 1845 Hospital Course Summary Disclaimer: The visit summary below is not to be considered part of the above Progress Note. Hospital Course: Impression Multiple falls- 5 falls in the past 5 days Multiple minor head injuries Hypernatremia-present on admission Dementia Mitral valve insufficiency Asthma Hypertension GERD Depression/anxiety Plan Admit patient to outpatient observation under the care of Dr. Aguilera for multiple falls with head injury We will check orthostatic vital signs twice a day as patient may be becoming orthostatic with position changes, which is attributed to her multiple falls. We could likely treat only standing blood pressures. Mild hyper nature me at present on admission with a sodium of 145. Will initiate Normal saline at 100 ML per hour for gentle hydration. Monitor patient on cardiac telemetry to evaluate for dysrhythmias Consult placed for PT and OT to evaluate patient tomorrow morning. Did discuss with patient's daughter, NAN Tena, regarding concern for multiple falls. She feels that patient may be forgetting to call for help or becoming confused and getting out of bed independently. She does indicate that changes were made to patient's bed and it was lowered closer to the ground today. SCDs to bilateral lower extremity for DVT prophylaxis Will utilize scheduled Tylenol for pain control given multiple contusions and ecchymosis At this time will review and continue home medications Will discuss further orders and plan of care with attending, Dr. Aguilera. At time of discharge medical care will return to primary care provider, Dr. Arreaga
[2017-11-01] MEDS ORDERED: ALBUTEROL/IPRATROPIUM 2.5mg-0.5mg/3ml NEB AEROSOL PRN (19:03)
[2017-11-01] MEDS: NS 1,000 ML IV SCH (20:18)
[2017-11-01] MEDS ORDERED: DONEPEZIL 10 MG TABLET PO SCH (21:00)
[2017-11-01] MEDS: FLECAINIDE 50 MG TABLET PO SCH (22:35)
[2017-11-01] MEDS: ACETAMINOPHEN 500 MG TABLET PO SCH (22:36)
[2017-11-02] MEDS: ACETAMINOPHEN 500 MG TABLET PO SCH ×5 (01:47→15:06)
[2017-11-02] MEDS: NS 1,000 ML IV SCH ×2 (06:40→15:07)
[2017-11-02 08:32] VITALS: BP 154/68; PULSE 72; RESP 20; TEMP 97.4; O2SAT 95
[2017-11-02] MEDS: FLECAINIDE 50 MG TABLET PO SCH (08:42)
[2017-11-02] MEDS ORDERED: BUPROPION 100 MG PO SCH (09:00)
[2017-11-02] MEDS ORDERED: SERTRALINE 100 MG TABLET PO SCH (09:00)
[2017-11-02] MEDS ORDERED: MULTI-VITAMIN PLAIN TABLET PO SCH (09:00)
--- NOTE | 2017-11-02 14:26 | Extended Care Facility Orders ---
Admission Orders Admit to:: [facility] Allergies/Adverse Reactions: Allergies Sulfa (Sulfonamide Antibiotics) Allergy (Unknown, Verified 11/01/17 15:43) SWOLLEN TONGUE Admitting Diagnosis: Recurrent falls Admitting Physician: Marvin Marie MD Attending Physician: Marvin Marie MD Anticiapted Length of Stay: greater than 30 days Rehab Potential: fair Rehab Prognosis: fair Diet: 11/02/17 Breakfast Regular Diet [DIET] Diet Modifications: May use Facility Protocol or Standing Orders: Yes May have flu vaccine: Yes Evaluations/Treatment: PT, OT - Additional Information In Event of Arrest: Start CPR,call 911,send patient to the ER Referrals: James Arreaga MD [Family Provider] - (Please follow up in 1 week ) Additional Orders: Severe fall risk. It is recommended by primary care, Dr. Arreaga as well as the hospitalist service that patient be moved to the memory care unit
--- NOTE | 2017-11-02 14:31 | Discharge Summary ---
Discharge Information Date of admission: 11/01/17 17:31 Anticipated date of discharge: 11/02/17 Attending Physician: Marvin Marie MD Primary care physician: James Arreaga MD Consults: None - Discharge Diagnosis (1) Multiple falls Status: Acute Multiple falls- 5 falls in the past 5 days Multiple minor head injuries Hypernatremia-present on admission Dementia Mitral valve insufficiency Asthma Hypertension GERD Depression/anxiety - Procedures Procedures: None - Laboratory Labs: 11/02/17 04:40 - Microbiology None - Radiology Radiology: 11/01/17 CT head and cervical spine-both negative for acute trauma or bleeding Chest [id number] no acute cardiopulmonary abnormalities. Pelvis and bilateral hip x-ray-no acute osseous abnormality - Pathology None History of Present Illness HPI: Patient is an 82-year-old female who is pleasantly confused with a long- standing history of dementia. She currently resides at [facility] under the care of Dr. Arreaga. Unfortunately, over the last 5 days she has suffered 5 separate falls requiring 3 emergency room visits in the past 4 days. She has "goose eggs" and multiple bruises all over her head, arms, knees, legs, however , has not been found have any acute fractures, intracranial trauma or bleeding. She was seen in the emergency room at [facility] on 10/28 was evaluated and discharged. Then patient was seen on Monday 10/30 at via [facility] ER and was evaluated and discharged. Yesterday she fell again, however, was not transported for evaluation. Then today she fell again hitting her head, she was transported to the emergency room for acute evaluation. She was seen by Dr. Arreaga's DAY CARE HOME MOTHER- Lacy this morning prior to the fall. Today during acute evaluation in the emergency room . Laboratory studies are reviewed. CT scan of the head, C-spine were obtained. Both were negative. X-ray of chest, hip and pelvis were also obtained. All found to be negative for acute processes. Given numerous falls. The hospitalist services were contacted and accepted patient for outpatient observation admission for further evaluation and treatment. Is expected that her stay will be less than 2 overnights She is seen upon arrival to medical unit. She is alert, however, pleasantly confused and looks to her daughter to answer all questions. Patient's daughter does confirm patient is a full code. Objective Vital signs: Temperature 97.4 F 11/02/17 08:04 Pulse Rate 72 11/02/17 08:11 Respiratory Rate 20 11/02/17 08:04 Blood Pressure 154/68 H 11/02/17 08:11 Pulse Oximetry 95 11/02/17 08:11 Height/Weight/BMI: Height 1.6 m Weight 79.2 kg Body Mass Index 30.4 - Constitutional Present: no acute distress, well nourished, well developed - Routine HEENT Exam Eye: Present: EOMI ENT: Present: mucous membranes moist, dentition normal - Routine Respiratory Exam Present: CTA bilaterally. Absent: wheezes - Routine Cardiovascular Exam Present: RRR, S1, S2. Absent: murmur - Routine Abdominal Exam Present: soft, normoactive bowel sounds, non distended. Absent: tenderness - Routine Extremities Exam Present: full ROM - Routine Back/Spine/Pelvis Exam Back/Spine: Present: full ROM - Routine Skin Exam Present: intact, dry, warm - Routine Neurological Exam Present: alert, CN II-XII intact, altered mental status - Routine Lymphatic Exam Lymphatic: Absent: adenopathy - Routine Psychiatric Exam Present: cooperative Hospital Course This is a general summary of the patient's hospital course. For more details refer to the complete medical record. Hospital course: Impression Multiple falls- 5 falls in the past 5 days Multiple minor head injuries Hypernatremia-present on admission Dementia Mitral valve insufficiency Asthma Hypertension GERD Depression/anxiety Plan- 11/01 Admit patient to outpatient observation under the care of Dr. Aguilera for multiple falls with head injury We will check orthostatic vital signs twice a day as patient may be becoming orthostatic with position changes, which is attributed to her multiple falls. We could likely treat only standing blood pressures. Mild hyper nature me at present on admission with a sodium of 145. Will initiate Normal saline at 100 ML per hour for gentle hydration. Monitor patient on cardiac telemetry to evaluate for dysrhythmias Consult placed for PT and OT to evaluate patient tomorrow morning. Did discuss with patient's daughter, NAN Tena, regarding concern for multiple falls. She feels that patient may be forgetting to call for help or becoming confused and getting out of bed independently. She does indicate that changes were made to patient's bed and it was lowered closer to the ground today. SCDs to bilateral lower extremity for DVT prophylaxis Will utilize scheduled Tylenol for pain control given multiple contusions and ecchymosis At this time will review and continue home medications Will discuss further orders and plan of care with attending, Dr. Aguilera. At time of discharge medical care will return to primary care provider, Dr. Arreaga 11/02/17- Discharge Patient is seen and examined prior to discharge. She continues to be pleasantly confused, which is at her baseline mentation. Given her dementia. Multiple conversations were had throughout the day with patient's daughter, Mallika, Dr. Arreaga and his DAY CARE HOME MOTHER-Lacy, and case management. Unfortunately, patient continues to fall and is at continued risk to fall. Given her mentation and inability to remember to call for help. In IRU screen was placed, however, patient did not meet criteria. It is recommended that patients bed be placed in a low position and bed alarms be used for additional patient safety. Patient is to be discharged back and arrangements will be made by PCP and [facility] staff for further safety strategies. Greater than 45 minutes of time was spent with plan and care coordination. Time spent with patient: greater than 35 minutes Resuscitation Status: Full Code Discharge Plan - Discharge Disposition Discharge Date: 11/02/17 Disposition: 04 To [facility] Home/Facility *Condition: Stable Reason For Visit (Visit label in EMR): Recurrent falls - Discharge Medications *Discharge Medications: Continue Multivitamin [One Daily Multivitamin] 1 each PO DAILY Metoprolol Succinate 50 mg PO DAILY BuPROPion SR [Wellbutrin Sr] 200 mg PO DAILY Acetaminophen 1 - 2 tab PO Q5H PRN PRN Reason: Pain Donepezil [Aricept] 10 mg PO HS Sertraline [Zoloft] 200 mg PO DAILY Nystatin 1 each TOP BID Cholecalciferol (Vitamin D3) [Vitamin D3] 5,000 unit PO DAILY Albuterol/Ipratropium [Duoneb] 1 unit AEROSOL TID PRN PRN Reason: Shortness Of Air Flecainide [Tambocor] 50 mg PO BID - Discharge Packet/Instructions *Diet: Regular diet *Activity: Activity only with walker and assistance *Pain Management/Treatment: Tylenol for pain control *Wound Care: None Additional Instructions: Patient is a severe fall risk. It is recommended by hospitalist service as well as primary care, Dr. Arreaga that patient be moved to Memory care unit at [facility]. Please place patient's bed low to the ground. Utilize chair and bed alarms. Decrease risk of falling. *Expected Signs/Symptoms: Improvement *Notify Physician if: further falls *During Business Hours Contact: Contact Dr. Arreaga's office *After Business Hours Contact: Page regional marketing manager physician for Dr. Arreaga *Pending Lab/Results: No Pending Lab - Referrals/Follow Up *Referrals/Follow Up: James Arreaga MD [Family Provider] - (Please follow up in 1 week ) - Patient Handouts - Dismissal Complete Discharge Instructions are:: Complete Physician Narrative - Narrative Physician: Marvin Marie MD Attestation Narrative: Date: 11/02/17 Time: 1630 Have independently interviewed and examined patient prior to discharge. Chart reviewed. Case discussed with CM and my DAY CARE HOME MOTHER. Care plan developed with my supervision; agree with above. Resting this afternoon. Did well with therapy. Vitals stable. Respiratory status stable. Did not qualify for IRU. Lungs: Clear, no distress CV: regular AB: soft nt/nd +BS MSE: Somnolent Plan: Will discharge to [facility] for care. Close care and supervision to help minimize potential falls. F/U with Dr Arreaga. See orders for details.
== END 2017-11-02 15:15 ==
LOC: ED 15:18 → MED 15:18 → SUATTDRO 17:31 → MED 18:02
PROVIDERS: ADMIT Internal Medicine; ATTEND Hospitalist